=== PATIENT | male | born 1950 | race Caucasian/White ===

== ENCOUNTER 2021-09-18 07:17 | Observation (INO) ==
[2021-09-18 08:28] LABS: Basophils % 0.4 %; Eosinophils # 0.1 K/mcL (0.0-0.6); Hematocrit 23.3 % (37.5-50.1); Hemoglobin 6.8 g/dL (12.9-16.9); Immature Granulocytes % 0.5 % (0-4); Lymphocytes # 0.3 K/mcL (0.6-4.6); Lymphocytes % 2.9 %; Mean Corpuscular HGB Conc 29.2 g/dL (31.6-35.5); Mean Corpuscular Hemoglobin 23.4 pg (28.0-33.3); Mean Corpuscular Volume 80.3 fL (83.0-100.0); Mean Platelet Volume 10.2 fL (9.4-12.4); Monocytes # 0.9 K/mcL (0.0-1.3); Monocytes % 9.2 %; Neutrophils # 8.4 K/mcL (1.6-8.9); Platelet Count 193 K/mcL (140-400); Red Cell Distribution Width 17.3 % (11.5-14.5); White Blood Count 9.8 K/mcL (4.3-11.1)
[2021-09-18 08:59] LABS: Alanine Aminotransferase 8 Units/L (7-52); Albumin 3.9 g/dL (3.5-5.7); Albumin/Globulin Ratio 1.6 (1.1-2.2); Alkaline Phosphatase 26 Units/L (34-104); Aspartate Amino Transferase 19 Units/L (13-39); BUN/Creatinine Ratio 25 (6-26); Bilirubin,Direct 0.1 mg/dL (0.0-0.2); Bilirubin,Indirect 0.3 mg/dL (0.0-1.0); Bilirubin,Total 0.4 mg/dL (0.3-1.0); Blood Urea Nitrogen 22 mg/dL (8-23); Calcium 8.7 mg/dL (8.6-10.3); Carbon Dioxide 25 mEq/L (23-29); Chloride 106 mEq/L (98-107); Globulin 2.5 g/dL (2.4-3.5); Glucose 93 mg/dL (70-105); Magnesium 1.8 mg/dL (1.6-2.6); Osmolality,Calculated 293 (280-300); Phosphorous 3.1 mg/dL (2.7-4.5); Potassium 3.8 mEq/L (3.5-5.1); Sodium 140 mEq/L (136-145); Total Protein 6.4 g/dL (6.4-8.9); eGFR For African Americans > 60 (> 60); eGFR For Non-African Americans > 60 (> 60)
[2021-09-18 09:01] LABS: Troponin I < 0.03 ng/mL (< 0.04)
[2021-09-18 10:00] LABS: Bilirubin,Urine Negative (Negative); Blood,Urine Negative (Negative); Clarity,Urine Clear (Clear); Color,Urine Light-Yellow (Yellow); Glucose,Urine (UA) Normal (Normal); Ketones,Urine 10 mg/dL (Negative); Leukocyte Esterase,Urine Negative (Negative); Nitrite,Urine Negative (Negative); PH,Urine 6.5 pH Units (5.0-8.0); Protein,Urine Trace mg/dL (Neg-Trace); Specific Gravity,Urine 1.023 (1.010-1.025); Urobilinogen,Urine Normal (Normal)
[2021-09-18 10:16] LABS: Amphetamine Screen,Urine Negative ng/mL (Cutoff=1000); Barbiturate Screen,Urine Negative ng/mL (Cutoff=200); Benzodiazepines Screen,Urine Negative ng/mL (Cutoff=200); Cannabinoid Screen,Urine Negative ng/mL (Cutoff = 50); Cocaine Screen,Urine Negative ng/mL (Cutoff= 300); Opiate Screen,Urine Negative ng/mL (Cutoff=300); Phencyclidine Screen,Urine Negative ng/mL (Cutoff=25)
[2021-09-18] MEDS ORDERED: 0.9 % Sodium Chloride 250 ML ONE (12:30)
[2021-09-18 12:40] LABS: Ferritin 8 ng/mL (20-250); Thyroid Stimulating Hormone 1.796 mcIU/mL (0.340-5.600)
[2021-09-18 12:41] LABS: Iron < 10 mcg/dL (65-175)
[2021-09-18] MEDS ORDERED: Ondansetron 4 MG/2 ML VIAL IVP PRN (12:50)
[2021-09-18] MEDS ORDERED: Naloxone 0.4 MG/ML INJ IVP PRN (12:50)
[2021-09-18 12:58] LABS: Folate 12.1 ng/mL (3.0-16.0)
[2021-09-18] MEDS ORDERED: Iron Sucrose Complex 400 MG in 0.9 % Sodium Chloride 250 ML IVPB ONE (14:39)
[2021-09-18] MEDS ORDERED: Fluticasone Propionate Nasal 50 MCG/SPRAY BOTTLE NS PRN (14:58)
[2021-09-18] MEDS ORDERED: Artificial Tears SOLN 15 ML BOTTLE OP PRN (14:58)
[2021-09-18] MEDS ORDERED: MOM Conc 10 ML UD.LIQ PO PRN (14:58)
[2021-09-18] MEDS: Carbidopa/Levodopa 25/250 TABLET PO SCH ×2 (16:08→20:57)
[2021-09-18] MEDS: Acetaminophen 325 MG TABLET PO SCH ×2 (16:08→20:58)
[2021-09-18] MEDS: *HR* LORazepam 0.5 MG TABLET PO SCH ×2 (16:09→20:57)
[2021-09-18] MEDS: Cyanocobalamin (B-12) 1,000 MCG TABLET PO SCH (16:09)
[2021-09-18 17:11] LABS: Hematocrit 25.1 % (37.5-50.1); Hemoglobin 7.4 g/dL (12.9-16.9)
[2021-09-18] MEDS: Pantoprazole 40 MG VIAL IVP SCH (18:07)
[2021-09-18] MEDS: Melatonin 3 MG TABLET PO SCH (18:09)
[2021-09-18] MEDS: Valproic Acid 250 MG CAPSULE PO SCH (20:56)
[2021-09-18] MEDS: traZODone 50 MG TABLET PO SCH ×2 (20:59→21:00)
[2021-09-18] MEDS: levETIRAcetam 250 MG TABLET PO SCH (21:06)
[2021-09-18] MEDS: KETOTIFEN FUMARATE OP SCH (21:11)
[2021-09-19 02:08] LABS: Basophils % 0.4 %; Eosinophils # 0.5 K/mcL (0.0-0.6); Eosinophils % 4.9 %; Hematocrit 22.6 % (37.5-50.1); Hemoglobin 6.7 g/dL (12.9-16.9); Immature Granulocytes % 0.5 % (0-4); Lymphocytes % 9.8 %; Mean Corpuscular HGB Conc 29.6 g/dL (31.6-35.5); Mean Platelet Volume 10.3 fL (9.4-12.4); Monocytes % 9.7 %; Neutrophils # 7.8 K/mcL (1.6-8.9); Platelet Count 161 K/mcL (140-400); Red Blood Count 2.79 M/mcL (4.19-5.50); Red Cell Distribution Width 17.2 % (11.5-14.5); Segmented Neutrophils % 74.7 %; White Blood Count 10.4 K/mcL (4.3-11.1)
[2021-09-19 02:27] LABS: BUN/Creatinine Ratio 22 (6-26); Blood Urea Nitrogen 18 mg/dL (8-23); Calcium 8.1 mg/dL (8.6-10.3); Carbon Dioxide 24 mEq/L (23-29); Chloride 106 mEq/L (98-107); Glucose 88 mg/dL (70-105); Osmolality,Calculated 285 (280-300); Potassium 3.6 mEq/L (3.5-5.1); Sodium 137 mEq/L (136-145); eGFR For African Americans > 60 (> 60); eGFR For Non-African Americans > 60 (> 60)
[2021-09-19] MEDS: Pantoprazole 40 MG VIAL IVP SCH (05:40)
[2021-09-19] MEDS: polyethylene glycoL 3350 17 GM POWD.PACK PO SCH (08:37)
[2021-09-19] MEDS: Valproic Acid 250 MG CAPSULE PO SCH ×2 (08:37→19:49)
[2021-09-19] MEDS: Loratadine 10 MG TABLET PO SCH (08:38)
[2021-09-19] MEDS: amLODIPine 5 MG TABLET PO SCH (08:39)
[2021-09-19] MEDS: Carbidopa/Levodopa 25/250 TABLET PO SCH ×3 (08:39→19:49)
[2021-09-19] MEDS: *HR* LORazepam 0.5 MG TABLET PO SCH ×3 (08:40→19:49)
[2021-09-19] MEDS: Acetaminophen 325 MG TABLET PO SCH ×3 (08:40→19:48)
[2021-09-19] MEDS: Cyanocobalamin (B-12) 1,000 MCG TABLET PO SCH (08:40)
[2021-09-19] MEDS: levETIRAcetam 250 MG TABLET PO SCH ×2 (08:42→20:04)
[2021-09-19] MEDS: KETOTIFEN FUMARATE OP SCH (08:46)
[2021-09-19] MEDS ORDERED: Lidocaine -MPF 2% 5 ML VIAL ONE (13:48)
[2021-09-19] MEDS ORDERED: *HR* Propofol 200 MG/20 ML VIAL IVP ONE ×2 (13:48→13:53)
[2021-09-19] MEDS: Sucralfate 1 GM TABLET PO SCH (16:10)
[2021-09-19] MEDS: Melatonin 3 MG TABLET PO SCH (19:46)
[2021-09-19] MEDS: traZODone 50 MG TABLET PO SCH ×2 (19:48)
[2021-09-19] MEDS: Naphazoline/Pheniramine Opth 15 ML BOTTLE BOTH EYES SCH (20:04)
[2021-09-20 01:29] LABS: Basophils # 0.1 K/mcL (0.0-0.2); Basophils % 0.6 %; Eosinophils # 0.9 K/mcL (0.0-0.6); Eosinophils % 11.7 %; Hematocrit 23.9 % (37.5-50.1); Hemoglobin 7.3 g/dL (12.9-16.9); Immature Granulocytes % 0.4 % (0-4); Lymphocytes # 1.3 K/mcL (0.6-4.6); Lymphocytes % 15.8 %; Mean Corpuscular HGB Conc 30.5 g/dL (31.6-35.5); Mean Corpuscular Hemoglobin 24.7 pg (28.0-33.3); Mean Platelet Volume 10.3 fL (9.4-12.4); Monocytes # 0.9 K/mcL (0.0-1.3); Monocytes % 11.2 %; Neutrophils # 4.9 K/mcL (1.6-8.9); Platelet Count 173 K/mcL (140-400); Red Blood Count 2.95 M/mcL (4.19-5.50); Red Cell Distribution Width 17.5 % (11.5-14.5); Segmented Neutrophils % 60.3 %; White Blood Count 8.1 K/mcL (4.3-11.1)
[2021-09-20] MEDS: Sucralfate 1 GM TABLET PO SCH ×2 (06:34→15:49)
[2021-09-20] MEDS ORDERED: Iron Sucrose Complex 250 MG in 0.9 % Sodium Chloride 250 ML IVPB SCH (09:15)
[2021-09-20] MEDS: Valproic Acid 250 MG CAPSULE PO SCH ×2 (09:26→20:46)
[2021-09-20] MEDS: *HR* LORazepam 0.5 MG TABLET PO SCH ×3 (09:27→20:46)
[2021-09-20] MEDS: Carbidopa/Levodopa 25/250 TABLET PO SCH ×3 (09:27→20:46)
[2021-09-20] MEDS: Loratadine 10 MG TABLET PO SCH (09:27)
[2021-09-20] MEDS: levETIRAcetam 250 MG TABLET PO SCH ×2 (09:27→20:46)
[2021-09-20] MEDS: amLODIPine 5 MG TABLET PO SCH (09:28)
[2021-09-20] MEDS: Cyanocobalamin (B-12) 1,000 MCG TABLET PO SCH (09:28)
[2021-09-20] MEDS: Acetaminophen 325 MG TABLET PO SCH ×3 (09:28→20:46)
[2021-09-20] MEDS: polyethylene glycoL 3350 17 GM POWD.PACK PO SCH (09:29)
[2021-09-20] MEDS: Naphazoline/Pheniramine Opth 15 ML BOTTLE BOTH EYES SCH ×2 (09:31→20:48)
[2021-09-20 14:20] VITALS: O2SAT 94
[2021-09-20 14:53] LABS: Transferrin 275 mg/dL (200-400)
[2021-09-20 17:05] LABS: Adenovirus Not Detected (Not Detect); Bordetella Pertussis Not Detected (Not Detect); Chlamydophila pneumoniae Not Detected (Not Detect); Coronavirus 229E Not Detected (Not Detect); Coronavirus HKU1 Not Detected (Not Detect); Coronavirus NL63 Not Detected (Not Detect); Coronavirus OC43 Not Detected (Not Detect); Human Metapneumovirus Not Detected (Not Detect); Human Rhinovirus/Enterovirus Not Detected (Not Detect); Influenza A Subtype 2009 H1 Not Detected (Not Detect); Influenza B Not Detected (Not Detect); Mycoplasma pneumoniae Not Detected (Not Detect); Parainfluenza Virus 1 Not Detected (Not Detect); Parainfluenza Virus 2 Not Detected (Not Detect); Parainfluenza Virus 3 Not Detected (Not Detect); Parainfluenza Virus 4 Not Detected (Not Detect); Respiratory Syncytial Virus Not Detected (Not Detect); SARS-CoV-2 Not Detected (Not Detect)
[2021-09-20 18:43] VITALS: BP 146/74; PULSE 57; TEMP 98.2
[2021-09-20] MEDS: traZODone 50 MG TABLET PO SCH ×2 (20:45→20:46)
[2021-09-20] MEDS: Melatonin 3 MG TABLET PO SCH (20:47)
== END 2021-09-20 21:05 | disposition home or self-care (01) ==
LOC: 3ANU 07:17 → EMEROOARM 07:17 → SUATTDRO 11:56 → 3ANU 13:36
PROVIDERS: ADMIT Internal Medicine; ATTEND Hospitalist